=== PATIENT | male | born 1945 | race African-American/Black ===

== ENCOUNTER 2020-01-01 17:40 | Emergency (ER) | payer OTHER ==
[~2020-01-01] VITALS: Ht 170.2 cm; Wt 86.4 kg
[2020-01-01] MEDS ORDERED: BACITRACIN 0.9 GM PACKET OINTMENT TP ONE (20:30)
[2020-01-01] MEDS ORDERED: ACETAMINOPHEN 500 MG TABLET PO ONE ×2 (20:45→21:00)
[2020-01-01 21:35] VITALS: BP 110/71
[2020-01-02 11:26] LABS: GLUCOSE,POINT OF CARE 123 MG/DL (70-110)
== END 2020-01-01 22:30 | disposition home or self-care (01) ==
LOC: EMS 17:40
DX: M25.531 Pain in right wrist (principal); M25.521 Pain in right elbow; I10 Essential (primary) hypertension; E11.9 Type 2 diabetes mellitus without complications; E78.00 Pure hypercholesterolemia, unspecified; W18.39XA Other fall on same level, initial encounter; Y93.89 Activity, other specified; Y92.89 Other specified places as the place of occurrence of the external cause; Y99.8 Other external cause status